=== PATIENT | female | born 1990 | race Two or more races ===

== ENCOUNTER 2023-09-10 09:02 | Outpatient (CLI) | payer OTHER | END 2023-09-10 09:03 | disposition home or self-care (01) | LOC: PRENATAL 09:02 | PROVIDERS: ATTEND Obstetrics & Gynecology Maternal & Fetal Medicine | DX: O35.9XX0 Maternal care for (suspected) fetal abnormality and damage, unspecified, not applicable or unspecified (principal); O35.3XX0 Maternal care for (suspected) damage to fetus from viral disease in mother, not applicable or unspecified; O44.00 Complete placenta previa NOS or without hemorrhage, unspecified trimester; Z3A.19 19 weeks gestation of pregnancy ==

== ENCOUNTER → 2023-12-10 09:26 | Outpatient (CLI) | payer OTHER | END | disposition home or self-care (01) | LOC: PRENATAL 09:26 | PROVIDERS: ATTEND Obstetrics & Gynecology Maternal & Fetal Medicine | DX: O26.849 Uterine size-date discrepancy, unspecified trimester (principal); O36.8199 Decreased fetal movements, unspecified trimester, other fetus; Z3A.32 32 weeks gestation of pregnancy ==

== ENCOUNTER 2024-01-17 21:04 | Outpatient (CLI) | payer OTHER ==
[2024-01-17 22:00] LABS: HEMATOCRIT 39.3 % (36.0-45.00); HEMOGLOBIN 13.8 g/dL (12.0-15.00); MEAN CELL VOLUME 88.7 fL (80.00-100.00); MEAN CORPUSCULAR HEMOGLOBIN 31.2 pg (27.00-32.0); MEAN CORPUSCULAR HGB CONC 35.2 g/dl (32.0-36.0); PLATELET COUNT 210 K/uL (150-450); RED BLOOD COUNT 4.44 M/uL (4.00-6.00)
[2024-01-17 22:03] LABS: URINE APPEARANCE Clear; URINE BILIRRUBIN Negative (NEGATIVE); URINE BLOOD Negative; URINE COLOR Yellow; URINE GLUCOSE Negative (NEGATIVE); URINE LEUKOCYTE Trace; URINE NITRATE Negative; URINE PROTEIN Negative (NEGATIVE)
[2024-01-17 22:06] LABS: URINE BACTERIA 1215.8 uL (0.0-1933); URINE EPITHELIAL CELLS 18.9 uL (0.0-38.8); URINE WBC 20.5 uL (0.0-23.2)
[2024-01-17 22:07] LABS: URINE RBC 1.5 uL (0.0-20.8)
[2024-01-17] MEDS ORDERED: RINGERS SOLUTION,LACTATED 1,000 ML IV SCH (22:45)
[2024-01-23] MEDS ORDERED: FOLIC ACID0.8 M1 (06:10)
[2024-01-23] MEDS ORDERED: [UNRECOGNIZED DRUG - OTHER] PO (06:10)
== END 2024-01-18 13:25 | disposition home or self-care (01) ==
LOC: OBS/DEL 21:04
PROVIDERS: ATTEND Obstetrics & Gynecology
DX: O26.893 Other specified pregnancy related conditions, third trimester (principal); O26.849 Uterine size-date discrepancy, unspecified trimester; O36.8199 Decreased fetal movements, unspecified trimester, other fetus; Z3A.36 36 weeks gestation of pregnancy